=== PATIENT | male | born 1980 | race African-American/Black ===

== ENCOUNTER → 2021-07-06 | Outpatient (CLI) | payer SELFPAY ==
[2021-07-06 18:34] LABS: SEMEN VOLUME 4.5 ML (1.5-5.0)
== END ==
LOC: LAB 17:10
PROVIDERS: ATTEND Urology
DX: E29.1 Testicular hypofunction (principal)
CPT/HCPCS: 36415; 83001; 83002; 84146; 84402; 84403; 89320